=== PATIENT | female | born 1960 | race Caucasian/White ===

== ENCOUNTER 2021-09-09 13:12 | Observation (INO) | payer OTHER, SELFPAY ==
[2021-09-09] VITALS (8 sets, daily range): BP systolic 107–167; BP diastolic 66–94; PULSE 68–93; RESP 14–20; TEMP 36.1–36.6; O2SAT 97–100; BMI 27.1
--- NOTE | ~2021-09-09 | MR_ITS ---
EXAMINATION: MR brain/brain stem wo/w con DATE: 09/10/2021 08:00 INDICATION: Cerebral vascular accident. TECHNIQUE: Magnetic resonance imaging (MRI) of the brain and brainstem was performed without and with 15 mL MultiHance intravenous contrast. Sequences included sagittal and axial T1-weighted FSE, axial diffusion-weighted FS EPI, axial T2*-weighted GRE, axial T2-weighted FLAIR Propeller, and axial T2-we ighted Propeller. Postcontrast sequences included axial and coronal T1-weighted FSE. Apparent diffusi on coefficient (ADC) maps were created. COMPARISON: Head CTA 09/09/21 FINDINGS: There are scattered areas of nonspecific increased T2-weighted signal intensity in the cere bral white matter and chela, which is within normal limits for the patient's age. There is no intracra nial hemorrhage, acute infarction, or abnormal intracranial mass lesion. The ventricles are normal in size. The orbits are normal. The paranasal sinuses are clear. The mastoid air cells are normal. IMPRESSION: 1. Normal aging brain. Reviewed, dictated and finalized at location A. A THERAPIST IMPRESSION: 1. Normal aging brain.
--- NOTE | ~2021-09-09 | MR_ITS ---
EXAMINATION: MR cervical spine wo con DATE: 09/10/2021 13:55 INDICATION: Left-sided tingling. TECHNIQUE: Magnetic resonance imaging (MRI) of the cervical spine was performed without intravenous c ontrast. Sequences included sagittal T2-weighted FSE, sagittal T2-weighted FS FSE, sagittal T1-weight ed FSE, axial MERGE, and axial T2-weighted FSE. COMPARISON: CTA neck 09/09/2021 FINDINGS: Bone alignment is normal. Vertebral body heights are normal. There are changes of anterior fusion procedure at C5-C6 with interbody bone graft. There is moderately decreased disc height at C6- C7. The spinal cord signal intensity is normal. The following disc levels are specifically discussed: C2-C3: The disc does not extend beyond the endplate margin. There is mild right uncovertebral joint o steoarthritis. There is mild left facet joint osteoarthritis. There is no neural foraminal stenosis. There is no central canal stenosis. C3-C4: The disc does not extend beyond the endplate margin. There is moderate right and mild left unc overtebral joint osteoarthritis. There is mild bilateral facet joint osteoarthritis. There is mild ri ght neural foraminal stenosis. There is no central canal stenosis. C4-C5: The disc does not extend beyond the endplate margins. There is moderate bilateral uncovertebra l joint osteoarthritis. There is severe right and moderate left facet joint osteoarthritis. There is moderate right and mild left neural foraminal stenosis. There is no central canal stenosis. C5-C6: There is mild left uncovertebral joint hypertrophy. There is no facet joint osteoarthritis. Th ere is no neural foraminal stenosis. There is mild central canal stenosis. C6-C7: The disc is bulging. There is severe bilateral uncovertebral joint osteoarthritis. There is mi ld bilateral facet joint osteoarthritis. There is mild bilateral neural foraminal stenosis. There is mild central canal stenosis. C7-T1: The disc is bulging. There is mild left uncovertebral joint osteoarthritis. There is severe bi lateral facet joint osteoarthritis. There is mild bilateral neural foraminal stenosis. There is mild central canal stenosis. IMPRESSION: 1. Moderate cervical spondylosis. 2. Anterior fusion procedure at C5-C6. Reviewed, dictated and finalized at location A. RINTENDENT FACTORY
--- NOTE | ~2021-09-09 | XR_ITS ---
XR chest 1V portable DATE: 09/09/2021 15:07 INDICATION: Left-sided weakness. History of transient ischemic attack. Cerebrovascular accident. TECHNIQUE: Portable upright AP chest on 09/09/2021 at 1503 hours COMPARISON: None FINDINGS: Normal heart size. No hilar or mediastinal enlargement. No pulmonary infiltrate or consolid ation, pleural effusion or pulmonary vascular congestion or pneumothorax. IMPRESSION: No active cardiopulmonary disease Reviewed, dictated and finalized at location A. USER SUPPORT SPECIALIST
--- NOTE | ~2021-09-09 | CT_ITS ---
EXAMINATION: CTA brain carotid DATE: 09/09/2021 15:36 INDICATION: Left arm and leg numbness and tingling. TECHNIQUE: Computed tomographic angiography (CTA) of the head was performed without and with 100 mL O mnipaque-350 intravenous contrast. CTA of the neck was performed with intravenous contrast. Automated exposure control and iterative reconstruction technique were employed. The dose-length product was 1 715.29 mGy-cm. Maximum intensity projection and volume rendered 3D-reconstructions were created by ady singleton technologist on a separate workstation. COMPARISON: Brain MRI 09/10/2021 FINDINGS: HEAD CTA: There is no intracranial hemorrhage, acute infarction, or abnormal intracranial mass lesion . The ventricles are normal in size. The paranasal sinuses are clear. The mastoid air cells are benigno l. The orbits are normal. The vertebral arteries are codominant. There is no significant stenosis of basilar artery or the posterior cerebral arteries. There is no significant stenosis of the intracrani al internal carotid arteries or anterior or middle cerebral arteries. Anterior communicating artery i s normal. The posterior communicating arteries are normal. There is no aneurysm. NECK CTA: There is mild scarring at the lung apices. There are no pathologically enlarged lymph nodes . There is a significant stenosis of the vertebral arteries. There is mild plaque in the proximal int ernal carotid arteries. There is 0% stenosis of the proximal right internal carotid artery relative t o normal distal artery lumen diameter (NASCET criteria). There is 0% stenosis of the proximal left in ternal carotid artery relative to normal distal artery lumen diameter. There is moderate cervical spo ndylosis. There are changes of anterior fusion procedure at C5-C6. IMPRESSION: 1. Normal brain. No aneurysm or significant intracranial arterial stenosis. 2. 0% stenosis of the proximal internal carotid arteries relative to normal distal artery lumen diame ters (NASCET criteria). Reviewed, dictated and finalized at location A. NISTRATIVE RESIDENT IMPRESSION: 1. Normal brain. No aneurysm or significant intracranial arterial stenosis. 2. 0% stenosis of the proximal internal carotid arteries relative to normal dis cathy artery lumen diameters (NASCET criteria).
--- NOTE | 2021-09-09 14:31 | ECG_ITS ---
Measurements Intervals [place] Rate: 69 P: 55 RI: 122 QRS: -35 QRSD: 81 T: 50 QT: 383 QTc: 412 Interpretive Statements SINUS RHYTHM WITH SHORT RI INTERVAL LEFT AXIS DEVIATION POSSIBLE LEFT ATRIAL ENLARGEMENT BORDERLINE R WAVE PROGRESSION, ANTERIOR LEADS LOW QRS VOLTAGE IN LIMB LEADS BORDERLINE ST-T WAVE ABNORMALITY- ANTEROLAT/HIGH LAT LEADS BASELINE ARTIFACT- V4 BORDERLINE ECG Electronically Signed On 09-11-2021 11:20:58 [employer] by Leonides Lincoln D.O.
--- NOTE | 2021-09-09 14:33 | ED.NEUROSD ---
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 Developed numbness, tingling and weird feeling at the left side of the face left side of the head started 7 PM last night, this morning wake up with numbness and weird feeling of the left upper and left lower extremities. Denies any weakness. Patient denies any fever, chills, nausea, vomiting, shortness of breath, chest pain, aggravating or relieving factors. Patient does not smoke, drinks occasionally, denies any drug use, history of migraine headache and TIAs and Villa's palsy. Currently patient takes Advil at home Review of Systems Review of Systems: CONSTITUTIONAL: Denies fever, chills, or sweats. EYES: Denies visual changes, redness, or discharge. ENT: Denies rhinorrhea, congestion, sore throat, or otalgia. CARDIOVASCULAR: Denies chest pain, palpitations, or edema. RESPIRATORY: Denies cough or dyspnea. GASTROINTESTINAL: Denies abdominal pain, nausea, vomiting, or diarrhea. GENITOURINARY: Denies dysuria or hematuria. SKIN: Denies rash or itching. MUSCULOSKELETAL: Denies back pain, joint pain, or myalgia. NEUROLOGIC: Denies headache, numbness, or weakness. PSYCHIATRIC: Denies anxiety or depression. Exam Narrative: General appearance: Well-developed, well-nourished Skin: Normal color Head: Normocephalic, nontraumatic Eyes: Clear conjunctiva ENT: Oropharynx normal, ears normal, nose normal Neck: Supple, nontender Chest and respiratory: Airway patent, no respiratory distress, no accessory muscle use Heart: Regular rate/rhythm Abdomen: Soft, nontender, no organomegaly, quiet bowel sounds Vascular: Normal peripheral pulses, normal capillary refill. Musculoskeletal: Normal range of motion, nontender back Neurologic: Alert and oriented ?3, left Villa's palsy, Course Course Emergency Course: Stable Vital Signs Vital signs: Vital Signs Temperature 36.6 C 09/09/21 13:15 Pulse Rate 87 09/09/21 13:15 Respiratory Rate 14 09/09/21 13:15 Blood Pressure 167/90 H 09/09/21 13:15 Pulse Oximetry 99 09/09/21 13:15 Temperature 36.6 C 09/09/21 13:15 Pulse Rate 77 09/09/21 14:37 Respiratory Rate 16 09/09/21 14:37 Blood Pressure 141/94 H 09/09/21 14:37 Pulse Oximetry 100 09/09/21 14:37 MDM - Neuro Symptoms/Deficit MDM Narrative Medical decision making narrative: Patient presents with stroke symptoms Lab Data Result diagrams: 09/09/21 14:40 09/09/21 14:40 Labs: Lab Results 09/09/21 09/09/21 09/09/21 Range/Units 14:40 14:40 14:40 WBC 7.4 (4.5-10.0) K/mm3 RBC 4.79 (4.2-5.4) M/mm3 Hgb 14.3 (12.0-15.0) g/dL Hct 42.8 (37.0-47.0) % MCV 89.4 (80-100) fl MCH 29.9 (26-34) pg MCHC 33.4 (32-36) g/dl RDW 12.1 (11.5-14.5) % Plt Count 288 (150-375) k/mm3 MPV 9.5 (7.4-10.4) fl Immature Gran % (Auto) 0.4 (0-0.5) % Neut % (Auto) 65.4 (45.5-73.1) % Lymph % (Auto) 25.5 (18.3-44.2) % [place] % (Auto) 6.7 (2.6-8.5) % Eos % (Auto) 1.3 (0-4.4) % Baso % (Auto) 0.7 (0.2-1.2) % Lymph # (Auto) 1.90 (0.9-3.2) K/mm3 [place] # (Auto) 0.5 (0.1-0.6) K/mm3 Eos # (Auto) 0.1 (0-0.3) K/mm3 Baso # (Auto) 0.1 (0.0-0.1) K/mm3 Abs Immat Gran (auto) 0.03 (0.00-0.031) K/mm3 Absolute Neuts (auto) 4.9 (1.3-6.7) K/mm3 Absolute Nucleated RBC 0.0 (0.0-0.012)
[2021-09-09 14:47] LABS: Basophils Absolute Auto 0.1 K/mm3 (0.0-0.1); Basophils Percent Auto 0.7 % (0.2-1.2); Eosinophils Absolute Auto 0.1 K/mm3 (0-0.3); Eosinophils Percent Auto 1.3 % (0-4.4); Hematocrit 42.8 % (37.0-47.0); Hemoglobin 14.3 g/dL (12.0-15.0); Immature Granulocyte Absolute 0.03 K/mm3 (0.00-0.031); Immature Granulocyte Percent A 0.4 % (0-0.5); Lymphocytes Percent Auto 25.5 % (18.3-44.2); Mean Corpuscular HGB Conc 33.4 g/dl (32-36); Mean Corpuscular Hemoglobin 29.9 pg (26-34); Mean Corpuscular Volume 89.4 fl (80-100); Mean Platelet Volume 9.5 fl (7.4-10.4); Monocytes Absolute Auto 0.5 K/mm3 (0.1-0.6); Monocytes Percent Auto 6.7 % (2.6-8.5); Neutrophils Absolute Auto 4.9 K/mm3 (1.3-6.7); Neutrophils Percent Auto 65.4 % (45.5-73.1); Platelet Count Result 288 k/mm3 (150-375); Red Blood Count 4.79 M/mm3 (4.2-5.4); Red Cell Distribution Width 12.1 % (11.5-14.5); White Blood Count 7.4 K/mm3 (4.5-10.0)
[2021-09-09 14:58] LABS: Partial Thromboplastin Time 31.5 SECONDS (22.3-36.8)
[2021-09-09 15:11] LABS: Alanine Aminotransferase 28 U/L (4-35); Alkaline Phosphatase 78 U/L (38-126); Anion Gap 5 mmol/L (8-16); Aspartate Amino Transferase 23 U/L (14-36); Bilirubin,Total 0.4 mg/dL (0.2-1.3); Blood Urea Nitrogen 17 mg/dL (7-17); Calcium 9.5 mg/dL (8.4-10.2); Carbon Dioxide 25 mmol/L (22-30); Chloride 106 mmol/L (98-107); Estimated CRCL calculation 69 ml/min; Estimated Glomerular Filt Rate > 60; Glucose 113 mg/dL (65-110); Sodium 136 mmol/L (137-145)
[2021-09-09 15:24] LABS: Troponin I < 0.012 ng/mL (0.000-0.034)
[2021-09-09] MEDS: ASPIRIN 325 MG TABLET PO (18:06)
[2021-09-09 18:49] LABS: SARS-CoV-2 RNA PCR Negative
--- NOTE | 2021-09-09 22:54 | PM.IMHP ---
H&P: HPI History of Present Illness Date/Time: 09/09/21 22:54 this is the 61-year-old female patient who has a past medical history of having left-sided droop from Villa's palsy many years ago. She was diagnosed with Villa palsy approximately 30 years ago. The patient has tried several things including steroids and antiviral and and acupuncture. Patient has had residual paralysis since then. However today the patient stated that she had than sensation that she was being pricked by pin to left side of her face and left arm. She stated that her face and left arm were weaker than normal. She is able to move her all of her extremities. She also stated that she felt some numbness and tingling to her left upper thigh as well. Patient has her full strength now. And she stated that the tingling to the left side of the face has improved. She has a history of having TIA and migraines in the past. The patient only takes over the counter medication is not on any current prescribed medication. ER providers impressions of her CTs ,CT head showed no evidence of acute intracranial process. CTA head showed patent intracranial circulation. CTA neck showed no dissection, stenosis or occlusion. Chest x-ray impression per radiology no acute cardiopulmonary disease. Patient has no focal weakness at this time. The patient was given aspirin. Neurology consult was placed. COVID test was negative. The patient is being admitted to observation status on the date of service of 09/09/21 Chief Complaint: Numbness and tingling to left face Review of Systems Review of Systems: All systems reviewed & are unremarkable except as noted in HPI and below Constitutional: Constitutional: Reports as per HPI and Reports no additional constitutional complaints Eyes: Eyes: Reports as per HPI and Reports no additional eye complaints ENT: Reports system reviewed and no additional complaints, except as documented and Reports Normal hearing present Cardiovascular: Cardiovascular: Reports no additional cardiovascular complaints Respiratory: Respiratory: Reports no additional respiratory complaints and Reports no additional respiratory complaints Gastrointestinal: Gastrointestinal: Reports as per HPI and Reports no additional gastrointestinal complaints Musculoskeletal: Musculoskeletal: Reports no additional musculoskeletal complaints Integumentary/Breasts: Skin/Breast: Reports system reviewed and no additional complaints, except as docu and Reports as per HPI Neurologic: Reports system reviewed and no additional complaints, except as documented, Reports as per HPI and Reports Normal hearing present Psychiatric: Psychiatric: Reports no additional psychiatric complaints and Reports as per HPI Endocrine: Endocrine: Reports no additional endocrine complaints Hematologic/Lymphatic: Hematologic/Lymphatic: Reports no additional hematologic/lymphatic complaints Allergic/Immunologic: Allergic/Immunologic: Reports no additional allergic/immunologic complaints [facility] Past Medical History Medical History (Updated 09/10/21 @ 00:12 by Eulalia Jack NP) Hiatal hernia History of Villa's palsy Hx-TIA (transient ischemic attack) Migraine Surgical History Surgical History (Updated 09/09/21 @ 22:56 by Eulalia Jack NP) H/O discectomy H/O tubal ligation Family History Family History Mother Diabetes mellitus Lymphoma Hypertension Heart disease Father Lung cancer Social History Social History (Updated 09/10/21 @ 00:07 by Eulalia Jack NP) Social History: The patient has 2 children. She lives with her and takes care of her 91-year-old mother. She is retired java software. Her is a durable power armament installer for healthcare. She is a lifelong nonsmoker. She does not use any alcohol marijuana or illicit drugs. Code status full code Smoking status: Never smoker Second hand tobacco
[2021-09-10] VITALS (7 sets, daily range): BP systolic 105–122; BP diastolic 57–79; PULSE 68–81; RESP 12–18; TEMP 36.1–36.5; O2SAT 97–99
[2021-09-10 01:27] LABS: Troponin I < 0.012 ng/mL (0.000-0.034)
[2021-09-10 07:05] LABS: Troponin I < 0.012 ng/mL (0.000-0.034)
[2021-09-10 07:34] LABS: Vitamin D 25 Hydroxy 29.9 ng/mL
--- NOTE | 2021-09-10 07:43 | PC.NURSE ---
2340 Pt arrived from the ED to room 324-2, DX Acute CVA. Pt A/O x3. Denies numbness, tingling, weakness and pain at this time. Encouraged to inform nurse if need assist with anything and plan of care discussed, verbalize understanding. No acute distress noted.
--- NOTE | 2021-09-10 09:43 | PM.IMPN ---
Progress Note: A&P Assessment and Plan (1) TIA (transient ischemic attack): Code(s): G45.9 - Transient cerebral ischemic attack, unspecified Status: Acute Assessment and Plan: -The patient was complaining of left facial numbness and tingling as well as up left arm numbness and tingling and she said she had a numbness and tingling to her left leg. She stated that she has had a TIA in the past. She also has a history of migraines. Patient denies any chest pain that radiates to her left arm. The patient was concerned about shingles however I do not see any blisters. The patient complains of having numbness and tingling throughout the left side of her face. This does not appear to be trigeminal neuralgia as this is numbness and tingling. -CTA head/neck negative. -MRI brain negative -echo and carotid dopplers pending -Neurology has been consulted -Continue with an aspirin and further recommendations per Neurology (2) Migraine: Code(s): G43.909 - Migraine, unspecified, not intractable, without status migrainosus Status: Chronic Assessment and Plan: -She also has a history of migraines and takes Advil knpt-web-[id number] when needed. -considered atypical migraine as explanation for some of her symptoms, however pt reports she has not had a headache throughout any of this, still has no ORTIZ currently (3) History of Villa's palsy: Code(s): Z86.69 - Personal history of other diseases of the nervous system and sense organs Status: Inactive Assessment and Plan: -Residual left facial paralysis from 30 years ago -has previously tried steroids and antiviral and and acupuncture Subjective Date/time seen: 09/10/21 09:43 Interval history: 61-year-old female patient who has a past medical history of having left-sided droop from Villa's palsy many years ago. She is admitted for left sided facial tingling, possible TIA. Today patient reports that she woke up this morning and all of her symptoms have mostly resolved. She still has decreased sensation to the left side of her face but she only notices it now if she rubs it. She had pain in her LUE and RUE yesterday which she describes as an aching pain that has also resolved. No cp/sob. No ORTIZ, vision changes. No extremity weakness. Review of Systems Review of Systems: All systems reviewed & are unremarkable except as noted in HPI and below Exam Narrative: General: No acute distress, non toxic appearing Eyes: PERRL, no scleral icterus, EOMI HEENT: NCAT, external ears normal, MMM Respiratory: No respiratory distress, Lungs CTA bilaterally, no wheezing Cardiovascular: RRR, no murmur Abdominal: Soft, nontender, non distended, no rebound or guarding Musculoskeletal: Moves all 4 extremities, no edema Neurological: A/Ox3, speech normal, chronic residual left sided facial droop Skin: Warm, dry, no rashes Psychiatric: Normal affect, normal mood Objective Data Vital Signs Vital Signs: Vital Signs - 24 hr 09/09/21 13:15 09/09/21 14:37 09/09/21 18:15 Temperature 97.8 F Pulse Rate 87 77 78 Respiratory Rate 14 16 16 Blood Pressure 167/90 H 141/94 H 145/91 H Pulse Oximetry 99 100 100 09/09/21 19:17 09/09/21 20:00 09/09/21 20:32 Temperature Pulse Rate 93 68 80 Respiratory Rate 20 16 Blood Pressure 140/90 130/66 Pulse Oximetry 100 100 09/09/21 23:01 09/09/21 23:40 09/10/21 00:00 Temperature 96.9 F L Pulse Rate 71 77 72 Respiratory Rate 14 18 Blood Pressure 127/76 107/70 Pulse Oximetry 99 97 09/10/21 04:00 09/10/21 06:00 Temperature 97.7 F Pulse Rate 81 68 Respiratory Rate 18 Blood Pressure 105/57 L Pulse Oximetry 99 Intake/Output Intake/Output: Intake & Output 09/07/21 09/08/21 09/09/21 09/10/21 23:59 23:59 23:59 23:59 Intake Total 200 Balance 200 Meds/Results Medications: Active Medications Generic Name Dose Route Start Last Admin Trade Name Anat Forde
[2021-09-10 10:21] LABS: Troponin I < 0.012 ng/mL (0.000-0.034)
[2021-09-10 11:41] LABS: Folic Acid 18.6 ng/mL (2.76->20)
[2021-09-10] MEDS: ASPIRIN 81 MG CHEWABLE TABLET PO (11:50)
--- NOTE | 2021-09-10 11:54 | WPDNEURCNPN ---
Assessment and Plan Additional Plan 1 status post left facial palsy long time ago 2. Tingling and numbness of the left side including left upper and left lower extremity with upgoing left plantar response raising the possibility of TIA of right hemisphere but the possibility cervical myelopathy needs to be ruled out MRI of cervical spine will be obtained before any further recommendations are made CTA of the head has been done to rule out the possibility of large territorial involvement. Consult date: 09/10/21 HPI: Mirian Cervantes is a 61 year old female Admitted to the hospital through the emergency room with the complaints of numbness tingling and weird feeling on the left side of her face since 7:00 p.m. last night and waking up in the morning severe feeling of the left upper and left lower extremities without associated weakness or any generalized symptomatology chills fever nausea vomiting or difficulties in breathing or chest pain and also with no history of smoking or drinking, initial examination was consistent with the Villa's palsy on the left side, her blood pressure was 167/90 and patient was afebrile , routine lab studies were normal, CT scan of the head was without any evidence of bleed or major space-occupying lesion CTA of the head was also negative with no large vessel involvement or any intracranial aneurysm, chest x-ray was negative, also her COVID test was negative patient was admitted to the hospital for observation status and her past history was consistent with history of Villa's palsy, history of TIA, history of migraine, and hiatal hernia. [facility] Past Medical History Medical History Hiatal hernia History of Villa's palsy Hx-TIA (transient ischemic attack) Migraine Surgical History Surgical History H/O discectomy H/O tubal ligation Family History Family History Mother Diabetes mellitus Lymphoma Hypertension Heart disease Father Lung cancer Social History Social History Social History: The patient has 2 children. She lives with her and takes care of her 91-year-old mother. She is retired software development engineer. Her is a durable power research attorney for healthcare. She is a lifelong nonsmoker. She does not use any alcohol marijuana or illicit drugs. Code status full code Smoking status: Never smoker Second hand tobacco smoke exposure: No Alcohol intake: never Substance use: never Substance use type: does not use Spiritual care concerns: No Meds Home Medications and Allergies Home Medications Medication Instructions Recorded Confirmed Type No Home Medications 09/09/21 09/09/21 History Allergies Allergy/AdvReac Type Severity Reaction Status Date / Time No Known Allergies Allergy Verified 09/09/21 18:16 Vital Signs Vital Signs - 24 hr 09/09/21 13:15 09/09/21 14:37 09/09/21 18:15 Temperature 36.6 C Pulse Rate 87 77 78 Respiratory Rate 14 16 16 Blood Pressure 167/90 H 141/94 H 145/91 H Pulse Oximetry 99 100 100 09/09/21 19:17 09/09/21 20:00 09/09/21 20:32 Temperature Pulse Rate 93 68 80 Respiratory Rate 20 16 Blood Pressure 140/90 130/66 Pulse Oximetry 100 100 09/09/21 23:01 09/09/21 23:40 09/10/21 00:00 Temperature 36.1 C L Pulse Rate 71 77 72 Respiratory Rate 14 18 Blood Pressure 127/76 107/70 Pulse Oximetry 99 97 09/10/21 04:00 09/10/21 06:00 Temperature 36.5 C Pulse Rate 81 68 Respiratory Rate 18 Blood Pressure 105/57 L Pulse Oximetry 99 Exam Narrative: Examination today revealed her to be awake alert cooperative in no obvious acute distress. Head normocephalic with no cranial bruit. Ear nose throat examination normal. Neck supple with no cervical bruit no thyromegaly no lymphadenopathy. Heart regular with
--- NOTE | 2021-09-11 | ECHO_ITS ---
Patient Info Name: Mirian Cervantes Age: 61 years : 1960 Gender: Female Ht: 66 in Wt: 167 lbs BSA: 1.89 m2 HR: 66 bpm BP: 116 / 70 mmHg Exam Date: 09/11/2021 9:55 AM Exam Location: [facility] Patient Status: Outpatient Admit Date: 09/09/2021 Staff Ordering Physician: Eulalia Jack NP Conditioning Coach: Judd Elizondo RDCS, RT Attending Provider: Sadie Franklin PA-C Referring Physician: Marcie KAUR; Exam Type: CA echo doppler color flow Study Info Indications I27.0 - Primary pulmonary hypertension I50.9 - Heart failure, unspecified R06.02 - Shortness of breath Complete two-dimensional, color flow and Doppler transthoracic echocardiogram is performed. Strain analysis performed. Summary 1. Complete two-dimensional, color flow and Doppler transthoracic echocardiogram is performed. 2. Normal LV size and wall thickness; normal LV systolic function, ejection fraction about 55-60%. Normal global longitudinal strain at -22%. Mild left atrial enlargement. Normal mitral valve structure, trace MR. Aortic valve not well visualized, no significant stenosis by Doppler. Trace TR, RVSP 31 mmHg. Left Ventricle Left ventricular chamber dimension is normal. Left ventricular systolic function is normal, estimated at 60-65%. There is no increased left ventricular wall thickness. Global longitudinal strain is normal at -22 %. Right Ventricle Right ventricular chamber dimension is normal. Right ventricular systolic function is normal. Left Atria Left atrial chamber dimension is mildly enlarged. Right Atria Right atrial chamber dimension is normal. Atrial Septum Intact interatrial septum visualized by 2D imaging. Aortic Valve The aortic valve is not well visualized. There is no aortic valve stenosis. Pulmonic Valve The pulmonic valve is not well visualized. Mitral Valve The mitral valve has normal leaflets. There is trace mitral valve regurgitation. Tricuspid Valve The tricuspid valve leaflets are normal. There is trace tricuspid valve regurgitation. Pericardium/Pleural The pericardium appears epicardial fat pad. Inferior Vena Cava Normal inferior vena cava with >50% collapse upon inspiration consistent with normal right atrial pressure, 8 mmHg. Left Ventricular Outflow Tract Name Value Normal LVOT 2D LVOT Diameter 2.0 cm LVOT Doppler LVOT Peak Gradient 5 mmHg LVOT Mean Gradient 2 mmHg LVOT VTI 22 cm LVOT VTI/AV VTI Ratio 0.8 LVOT Stroke Volume 66 ml Mitral Valve Name Value Normal MV Doppler MV Peak Gradient 1 mmHg MV Mean Gradient 0 mmHg MV Decel [place] 287 cm/s2 MV PHT
[2021-09-11 04:39] VITALS: O2SAT 97
[2021-09-11 05:08] VITALS: BP 116/70; PULSE 67; RESP 16; TEMP 36.6; O2SAT 97
[2021-09-11 08:00] VITALS: O2SAT 97
[2021-09-11 08:03] LABS: Basophils Absolute Auto 0.1 K/mm3 (0.0-0.1); Basophils Percent Auto 0.7 % (0.2-1.2); Eosinophils Absolute Auto 0.2 K/mm3 (0-0.3); Eosinophils Percent Auto 2.9 % (0-4.4); Hematocrit 42.7 % (37.0-47.0); Hemoglobin 14.2 g/dL (12.0-15.0); Immature Granulocyte Absolute 0.01 K/mm3 (0.00-0.031); Immature Granulocyte Percent A 0.1 % (0-0.5); Lymphocytes Absolute Auto 2.76 K/mm3 (0.9-3.2); Lymphocytes Percent Auto 40.6 % (18.3-44.2); Mean Corpuscular HGB Conc 33.3 g/dl (32-36); Mean Corpuscular Hemoglobin 30.4 pg (26-34); Mean Corpuscular Volume 91.4 fl (80-100); Mean Platelet Volume 9.8 fl (7.4-10.4); Monocytes Absolute Auto 0.6 K/mm3 (0.1-0.6); Monocytes Percent Auto 8.5 % (2.6-8.5); Neutrophils Absolute Auto 3.2 K/mm3 (1.3-6.7); Neutrophils Percent Auto 47.2 % (45.5-73.1); Platelet Count Result 257 k/mm3 (150-375); Red Blood Count 4.67 M/mm3 (4.2-5.4); Red Cell Distribution Width 12.2 % (11.5-14.5); White Blood Count 6.8 K/mm3 (4.5-10.0)
[2021-09-11 08:11] LABS: Alanine Aminotransferase 23 U/L (4-35); Albumin Level 3.9 g/dL (3.5-5.1); Alkaline Phosphatase 63 U/L (38-126); Anion Gap 3 mmol/L (8-16); Aspartate Amino Transferase 21 U/L (14-36); Bilirubin,Total 0.6 mg/dL (0.2-1.3); Blood Urea Nitrogen 21 mg/dL (7-17); CRP < 0.5 mg/dL (<1.0); Calcium 9.3 mg/dL (8.4-10.2); Carbon Dioxide 30 mmol/L (22-30); Chloride 105 mmol/L (98-107); Estimated CRCL calculation 61 ml/min; Estimated Glomerular Filt Rate > 60; Glucose 90 mg/dL (65-110); Lactate Dehydrogenase 312 U/L (313-618); Magnesium 2.2 mg/dL (1.6-2.3); Potassium 4.2 mmol/L (3.4-5.0); Sodium 138 mmol/L (137-145)
[2021-09-11] MEDS: ASPIRIN 81 MG CHEWABLE TABLET PO (08:29)
--- NOTE | 2021-09-11 11:11 | PM.IMPN ---
Progress Note: A&P Assessment and Plan (1) TIA (transient ischemic attack): Code(s): G45.9 - Transient cerebral ischemic attack, unspecified Status: Acute Assessment and Plan: -The patient was complaining of left facial numbness and tingling as well as up left arm numbness and tingling and she said she had a numbness and tingling to her left leg. She stated that she has had a TIA in the past. She also has a history of migraines. Patient denies any chest pain that radiates to her left arm. The patient was concerned about shingles however I do not see any blisters. The patient complains of having numbness and tingling throughout the left side of her face. This does not appear to be trigeminal neuralgia as this is numbness and tingling. -CTA head/neck negative. -MRI brain negative -MRI cervical spine shows moderate cervical spondylosis and anterior fusion at C5-C6 -echo pending -Neurology has been consulted -Continue with an aspirin and further recommendations per Neurology (2) Migraine: Code(s): G43.909 - Migraine, unspecified, not intractable, without status migrainosus Status: Chronic Assessment and Plan: -She also has a history of migraines and takes Advil [id number] when needed. 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 She is admitted for left sided facial tingling, possible TIA. All symptoms have resolved at this time. Anxious to go home. Had echo this morning, results pending. Review of Systems Review of Systems: All systems reviewed & are unremarkable except as noted in HPI and below Exam Narrative: General: No acute distress, non toxic appearing Eyes: PERRL, no scleral icterus, EOMI HEENT: NCAT, external ears normal, MMM Respiratory: No respiratory distress, Lungs CTA bilaterally, no wheezing Cardiovascular: RRR, no murmur Abdominal: Soft, nontender, non distended, no rebound or guarding Musculoskeletal: Moves all 4 extremities, no edema Neurological: A/Ox3, speech normal, chronic residual left sided facial droop Skin: Warm, dry, no rashes Psychiatric: Normal affect, normal mood Objective Data Vital Signs Vital Signs: Vital Signs - 24 hr 09/10/21 12:00 09/10/21 14:00 09/10/21 20:00 Temperature 97 F L 97 F L Pulse Rate 75 75 75 Respiratory Rate 12 12 12 Blood Pressure 122/73 122/73 Pulse Oximetry 97 97 97 09/10/21 22:00 09/11/21 04:39 09/11/21 05:08 Temperature 97.0 F L 97.8 F Pulse Rate 81 67 Respiratory Rate 16 16 Blood Pressure 105/79 116/70 Pulse Oximetry 97 97 97 09/11/21 08:00 Temperature Pulse Rate Respiratory Rate Blood Pressure Pulse Oximetry 97 Intake/Output Intake/Output: Intake & Output 09/08/21 09/09/21 09/10/21 09/11/21 23:59 23:59 23:59 23:59 Intake Total 1300 270 Balance 1300 270 Meds/Results Medications: Active Medications Generic Name Dose Route Start Last Admin Trade Name Freq PRN Reason Stop Dose Admin Aspirin 81 mg 09/10/21 08:00 09/11/21 08:29 Aspirin 81 Mg Chewable Tablet PO 81 mg DAILY@0800 JAMES Administration Perflutren Lipid Microsphere 0 ml 09/10/21 00:02 Perflutren Lipid Microspheres 1.5 Ml Vial Diluted To 10 Ml Total Volume IV PUSH ONCE PRN adequate visualization Protocol Radiology Results: ITS Impressions Chest X-Ray
[2021-09-11 14:00] VITALS: BP 112/76; PULSE 88; RESP 20; TEMP 36.4; O2SAT 98
--- NOTE | 2021-09-11 14:39 | PM.DS ---
DS: Admitting Diagnosis Discharge Date 09/11/21 Admitting Diagnosis TIA DS: Discharge Diagnosis Discharge Diagnosis (1) TIA (transient ischemic attack): Code(s): G45.9 - Transient cerebral ischemic attack, unspecified Status: Acute Assessment and Plan: -The patient was complaining of left facial numbness and tingling as well as up left arm numbness and tingling and she said she had a numbness and tingling to her left leg. She stated that she has had a TIA in the past. She also has a history of migraines. Patient denies any chest pain that radiates to her left arm. The patient was concerned about shingles however I do not see any blisters. The patient complains of having numbness and tingling throughout the left side of her face. This does not appear to be trigeminal neuralgia as this is numbness and tingling. -CTA head/neck negative. -MRI brain negative -MRI cervical spine shows moderate cervical spondylosis and anterior fusion at C5-C6 -echo -Neurology has been consulted. They ordered MRI cervical spine to rule out cervical myelopathy and this was read as moderate spondylosis and fusion at C5-C6. Discussed case with Dr. Bauer who states pt is stable for discharge and should go home on 81 mg asa daily. (2) Migraine: Code(s): G43.909 - Migraine, unspecified, not intractable, without status migrainosus Status: Chronic Assessment and Plan: -She also has a history of migraines and takes Advil [id number] when needed. 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 She is admitted for left sided facial tingling, possible TIA. Please see HPI for further details. Hospital Course: Please see above for details of hospital course. Status at Discharge Cognitive/behavioral status at discharge: stable Functional status at discharge: independent ambulation Overall status at discharge: patient is back to baseline Time Spent with Patient Time attestation: Total time spent providing and/or coordinating discharge services: 35 Time spent: Greater than 30 minutes Exam Narrative: General: No acute distress, non toxic appearing Eyes: PERRL, no scleral icterus, EOMI HEENT: NCAT, external ears normal, MMM Respiratory: No respiratory distress, Lungs CTA bilaterally, no wheezing Cardiovascular: RRR, no murmur Abdominal: Soft, nontender, non distended, no rebound or guarding Musculoskeletal: Moves all 4 extremities, no edema Neurological: A/Ox3, speech normal, chronic residual left sided facial droop Skin: Warm, dry, no rashes Psychiatric: Normal affect, normal mood DS: Data Data Completed and Pending Labs on day of discharge: Labs from last 24 hours 09/11/21 09/11/21 09/11/21 07:15 07:15 07:15 WBC 6.8 RBC 4.67 Hgb 14.2 Hct 42.7 MCV 91.4 MCH 30.4 MCHC 33.3 RDW 12.2 Plt Count 257 MPV 9.8 Immature Gran % (Auto) 0.1 Neut % (Auto) 47.2 Lymph % (Auto) 40.6 [place] % (Auto) 8.5 Eos % (Auto) 2.9 Baso % (Auto) 0.7 Lymph # (Auto) 2.76 [place] # (Auto) 0.6 Eos # (Auto) 0.2 Baso # (Auto) 0.1 Abs Immat Gran (auto) 0.01 Absolute Neuts (auto) 3.2 Absolute Nucleated RBC 0.0 Nucleated RBC % 0.0 Sodium 138 Potassium 4.2 Chloride 105 Carbon Dioxide 30 Anion Gap 3 L BUN 21 H Creatinine 0.80 Estim
[2021-09-11 21:51] VITALS: BP 118/82; PULSE 84; RESP 18; TEMP 36.3; O2SAT 94
[2021-09-12 05:37] VITALS: BP 108/55; PULSE 68; RESP 18; TEMP 36.5; O2SAT 98
[2021-09-12 08:00] VITALS: O2SAT 98
[2021-09-12] MEDS: ASPIRIN 81 MG CHEWABLE TABLET PO (08:03)
--- NOTE | 2021-09-12 13:20 | PM.DS ---
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 She also reported some muscle aching pain to her left arm and leg which resolved. She came to the ER for further workup and evaluation to rule out stroke. Patient does report a history of TIA in the past but that was 30 years ago when she also had Villa's palsy diagnosed so she is unsure if it was a real diagnosis. Initial labs showed blood pressure slightly elevated 167/90, normal heart rate, afebrile, normal oxygenation on room air. Normal CBC with differential. Normal coag panel. Slight hyponatremia at 136. Normal renal function, normal LFTs. Negative troponin x4. Normal B12, vitamin-D, folate, TSH. COVID negative. Patient was admitted to the hospital for further workup for stroke and consult to neurology. -CTA head/neck negative. -MRI brain negative -MRI cervical spine shows moderate cervical spondylosis and anterior fusion at C5-C6 -echo showed normal EF, 55-60, normal LV size. -Neurology has been consulted. Previous provider discussed case with Dr. Bauer who states pt is stable for discharge and should go home on 81 mg asa daily. Patient feels well at this time and ready for discharge. She is only here for short amount of time all taking care of her mother and will follow-up with her primary care when she returns back to [place] in a week. Return to ER warnings given. The patient understands agrees the plan all questions answered. (2) Migraine: Code(s): G43.909 - Migraine, unspecified, not intractable, without status migrainosus Status: Chronic Assessment and Plan: -She also has a history of migraines and takes Advil [id number] when needed. 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 Time Spent with Patient Time attestation: Total time spent providing and/or coordinating discharge services: 41 Time spent: Greater than 30 minutes Exam Narrative: General: 61-year-old woman sitting up in bed on her cellphone. Appears comfortable. In no acute distress. Skin: No jaundice or cyanosis. Good skin turgor. Neck: Full range of motion. Supple. Respiratory: Lungs are clear to auscultation bilaterally. No bony chest wall tenderness. Cardiovascular: The heart has a regular rate and rhythm without murmur. No carotid bruits. Lower extremities: No lower extremity edema. Distal pulses are easily palpated. No calf tenderness to palpation. Gastrointestinal: The abdomen is soft, nontender and nondistended with active bowel sounds. Psychiatric: Lucid and oriented. Memory intact. Neurologic: Left sided facial droop. Focal extremity deficits. Speech is clear. Discharge Plan Discharge Attending physician on discharge: Geneva Meredith Consulting providers: Buster Frausto ; Ashutosh Bauer Discharging Clinician: Sheri Banda Anticipated Discharge Date/Time
== END 2021-09-12 13:40 | disposition home or self-care (01) ==
LOC: ANHED 15:05 → ANH3MEDSUR 20:29
PROVIDERS: Nurse Practitioner; Admitting Provider Internal Medicine; Emergency Provider Emergency Medicine; Visit Provider Family Medicine
DX: G45.9 Transient cerebral ischemic attack, unspecified (principal); R20.0 Anesthesia of skin; G43.909 Migraine, unspecified, not intractable, without status migrainosus; R29.704 NIHSS score 4; Z86.73 Personal history of transient ischemic attack (TIA), and cerebral infarction without residual deficits; Z20.822 Contact with and (suspected) exposure to COVID-19; Z86.69 Personal history of other diseases of the nervous system and sense organs
CPT/HCPCS: 36415; 70496; 70498; 70553; 71045; 72141; 80053; 82306; 82607; 82728; 82746; 83615; 83735; 84443; 84484; 85025; 85610; 85730; 86140; 93005; 93306; 99285; A9270; A9577; C9803; G0378; Q9967; U0003; U0005